=== PATIENT | male | born 2000 | race Caucasian/White ===

== ENCOUNTER 2021-06-25 14:20 | Emergency (ER) | payer OTHER ==
[2021-06-25 15:08] VITALS: TEMP 98
[2021-06-25] MEDS ORDERED: BACITRACIN OINT 1 EACH PACKET TOPICAL ONE (17:48)
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
[2021-06-25 18:08] VITALS: BP 120/68; PULSE 76; RESP 18
== END 2021-06-25 18:07 | disposition home or self-care (01) ==
LOC: EC 14:20
DX: L55.1 Sunburn of second degree (principal); R60.0 Localized edema; Z88.0 Allergy status to penicillin
CPT/HCPCS: 99283